=== PATIENT | female | born 1990 | race Asian ===

== ENCOUNTER 2022-03-03 15:57 | Emergency (ER) | payer MEDICAID ==
[~2022-03-03] VITALS: Ht 157.5 cm; Wt 90.7 kg
[2022-03-03 16:01] VITALS: BP 111/74
[2022-03-03] MEDS ORDERED: SODIUM CHLORIDE 0.9% 1,000 ML IVB ONE (17:00)
[2022-03-03] MEDS ORDERED: ONDANSETRON HCL 4 MG/2 ML VIAL IV ONE (17:00)
[2022-03-03] MEDS ORDERED: MORPHINE SULFATE INJECTION 2 MG/ML SYRG IV ONE (17:00)
== END 2022-03-03 18:10 | disposition left against medical advice (07) ==
LOC: ER 15:57
DX: K52.9 Noninfective gastroenteritis and colitis, unspecified (principal)

== ENCOUNTER → 2024-06-12 | Day surgery (SDC) | payer MEDICAID ==
[~2024-06-12] VITALS: Ht 157.5 cm; Wt 100.0 kg
[~2024-06-12] MED LIST: DexAMETHasone SOD PHOS 10MG/1ML VIAL INJ ONE; ETOMIDATE (2MG/ML) 20ML VIAL IV ONE; HYDROmorphone HCL 2 MG/ML VL/or syr IV PRN; IBUP-1456 PO; LACTATED RINGER'S 1,000 ML IV SCH; MIDAZOLAM HCL 2MG/2ML 2ml VIAL (1mg/ml) IV PRN; MIDAZOLAM HCL 2MG/2ML 2ml VIAL (1mg/ml) ONE; MORPHINE SULFATE 4 MG/ML SYR/VIAL IV PRN; ONDANSETRON HCL 4 MG/2 ML VIAL IV PRN; PHENYLEPHRINE HCL 10 MG/ML VL IV ONE; SUCCINYLCHOLINE CHLORIDE 20 MG/ML 10ML VIAL IV ONE; SUGAMMADEX 200mg/2ml Vial (100MG/ML) IV ONE; ZOFR4T PO; ceFAZolin 1GM VL ONE; ceFAZolin 1GM/50ML 100 ML IV ONE; ePHEDrine SULFATE 50 MG/ML AMP IV PRN; fentaNYL CITRATE 100 MCG/2 ML VL ONE
[2024-06-12 18:14] LABS: Basophils # (auto) 0.1 10 ^3/uL (0-0.2); Eosinophils # (auto) 0.5 10 ^3/uL (0-0.8); Eosinophils % (auto) 4.1 % (0.0-7.0); Hematocrit 42.1 % (36.0-46.0); Lymphocytes # (auto) 4.1 10 ^3/uL (0.4-5.4); Lymphocytes % (auto) 30.7 % (10.0-50.0); Mean Corpuscular Hemoglobin 30.3 pg (28.0-32.0); Mean Corpuscular Hgb Conc. 33.2 g/dL (32.0-36.0); Monocytes % (auto) 7.2 % (0.0-12.0); Neutrophils # (auto) 7.6 10 ^3/uL (1.6-8.6); Nucleated Red Blood Cells % 0.1 %; Platelet Count (auto) 355 10^3/uL (140-450); Red Blood Cells 4.62 10^6/uL (4.0-5.20); Red Cell Distribution Width 14.4 % (11.8-14.3); White Blood Cell 13.4 10^3/uL (4.4-10.8)
[2024-06-12] MEDS: LACT. RINGERS/OXYTOCIN 20UNITS 1,000 ML IV ONE (18:14)
[2024-06-12 18:25] LABS: INR 0.96 (0.9-1.15); Partial Thromboplastin Time 25.6 SEC (24.5-34.5); Prothrombin Time 10.2 sec (9.3-11.8)
[2024-06-12 18:31] VITALS: PULSE 88; RESP 20; O2SAT 96
[2024-06-12 21:15] VITALS: TEMP 97.8
[2024-06-12 21:20] VITALS: O2SAT 100
[2024-06-12 21:55] LABS: Basophils # (auto) 0.1 10 ^3/uL (0-0.2); Basophils % (auto) 0.4 % (0.0-2.0); Eosinophils # (auto) 0 10 ^3/uL (0-0.8); Eosinophils % (auto) 0.1 % (0.0-7.0); Hematocrit 36.2 % (36.0-46.0); Lymphocytes # (auto) 1.9 10 ^3/uL (0.4-5.4); Lymphocytes % (auto) 7.7 % (10.0-50.0); Mean Corpuscular Hemoglobin 29.9 pg (28.0-32.0); Mean Corpuscular Hgb Conc. 33.1 g/dL (32.0-36.0); Mean Corpuscular Volume 90.2 fL (80.0-100.0); Monocytes # (auto) 0.7 10 ^3/uL (0-1.3); Monocytes % (auto) 2.8 % (0.0-12.0); Neutrophils # (auto) 21.6 10 ^3/uL (1.6-8.6); Platelet Count (auto) 337 10^3/uL (140-450); Red Blood Cells 4.01 10^6/uL (4.0-5.20); Red Cell Distribution Width 14.2 % (11.8-14.3); White Blood Cell 24.3 10^3/uL (4.4-10.8)
[2024-06-12 22:10] VITALS: BP 103/46; PULSE 75; RESP 20; O2SAT 95
[2024-06-12] MEDS: ONDANSETRON HCL 4 MG/2 ML VIAL IV ONE (22:15)
== END | disposition home or self-care (01) ==
LOC: ER 17:23 → SUR 20:02
PROVIDERS: ATTEND Obstetrics & Gynecology
DX: O03.4 Incomplete spontaneous abortion without complication (principal); Z3A.01 Less than 8 weeks gestation of pregnancy
CPT/HCPCS: 36415; 59812; 76801; 84702; 85025; 85610; 85730; 86850; 86900; 86901; 88305; 96365; 96375; 99291; J0330; J0690; J1100; J2250; J2371; J2405; J2590; J3010

== ENCOUNTER 2024-08-24 08:03 | Emergency (ER) | payer MEDICAID ==
[~2024-08-24] VITALS: Ht 157.5 cm; Wt 95.0 kg
[~2024-08-24 08:03] MED LIST changes: -DexAMETHasone SOD PHOS 10MG/1ML VIAL INJ ONE; -ETOMIDATE (2MG/ML) 20ML VIAL IV ONE; -HYDROmorphone HCL 2 MG/ML VL/or syr IV PRN; -LACTATED RINGER'S 1,000 ML IV SCH; -MIDAZOLAM HCL 2MG/2ML 2ml VIAL (1mg/ml) IV PRN; -MIDAZOLAM HCL 2MG/2ML 2ml VIAL (1mg/ml) ONE; -MORPHINE SULFATE 4 MG/ML SYR/VIAL IV PRN; -ONDANSETRON HCL 4 MG/2 ML VIAL IV PRN; -PHENYLEPHRINE HCL 10 MG/ML VL IV ONE; -SUCCINYLCHOLINE CHLORIDE 20 MG/ML 10ML VIAL IV ONE; -SUGAMMADEX 200mg/2ml Vial (100MG/ML) IV ONE; -ceFAZolin 1GM VL ONE; -ceFAZolin 1GM/50ML 100 ML IV ONE; -ePHEDrine SULFATE 50 MG/ML AMP IV PRN; -fentaNYL CITRATE 100 MCG/2 ML VL ONE
[2024-08-24 08:40] VITALS: PULSE 73; RESP 28; TEMP 97.7; O2SAT 97
[2024-08-24 09:12] LABS: Basophils # (auto) 0.1 10 ^3/uL (0-0.2); Basophils % (auto) 1.2 % (0.0-2.0); Eosinophils # (auto) 0.4 10 ^3/uL (0-0.8); Eosinophils % (auto) 4.2 % (0.0-7.0); Hematocrit 40.3 % (36.0-46.0); Hemoglobin 13.3 g/dL (12.2-16.2); Lymphocytes # (auto) 2.5 10 ^3/uL (0.4-5.4); Lymphocytes % (auto) 24.3 % (10.0-50.0); Mean Corpuscular Hemoglobin 27.1 pg (28.0-32.0); Mean Corpuscular Volume 82.3 fL (80.0-100.0); Monocytes # (auto) 0.6 10 ^3/uL (0-1.3); Monocytes % (auto) 5.9 % (0.0-12.0); Neutrophils # (auto) 6.6 10 ^3/uL (1.6-8.6); Neutrophils % (auto) 64.4 % (37.0-80.0); Platelet Count (auto) 407 10^3/uL (140-450); Red Cell Distribution Width 16.5 % (11.8-14.3); White Blood Cell 10.3 10^3/uL (4.4-10.8)
[2024-08-24] MEDS: HYDROcodone-ACET 5/325MG TAB PO ONE (10:07)
[2024-08-24] MEDS ORDERED: HYDROcodone-ACET 5/325MG TAB ONE (10:10)
[2024-08-24 10:17] LABS: Calcium 9.1 mg/dL (8.7-10.4); Chloride 108 mmol/L (98-107); Glucose 121 mg/dL (74-106); Potassium 3.8 mmol/L (3.5-5.1); Sodium 137 mmol/L (136-145)
[2024-08-24 10:38] LABS: Anion Gap 6 (5-15); BUN/Creatinine Ratio 13.5 (10.0-20.0); Blood Urea Nitrogen 12 mg/dL (9-23); Carbon Dioxide 23 mmol/L (20-31)
[2024-08-24 14:00] VITALS: BP 137/80; PULSE 80; RESP 15; O2SAT 100
[2024-08-25] MEDS ORDERED: ZOFR4T PO (01:11)
[2024-08-26] MEDS ORDERED: fentaNYL CITRATE 100 MCG/2 ML VL ONE (11:32)
[2024-08-26] MEDS ORDERED: PROPOFOL 10 MG/ML 20 ML IV ONE (11:33)
[2024-08-26] MEDS ORDERED: ONDANSETRON HCL 4 MG/2 ML VIAL ONE (11:55)
[2024-08-26] MEDS ORDERED: DexAMETHasone SOD PHOS 10MG/1ML VIAL INJ ONE (11:55)
[2024-08-26] MEDS ORDERED: ROCURONIUM 10MG/ML 10ML VIAL IV ONE (11:58)
[2024-08-26] MEDS ORDERED: MEPERIDINE HCL (50 MG/ML) 1 ML VIAL ONE (11:59)
[2024-08-26] MEDS ORDERED: SUGAMMADEX 200mg/2ml Vial (100MG/ML) IV ONE (13:00)
== END 2024-08-24 15:09 | disposition home or self-care (01) ==
LOC: ER 08:03
DX: D25.9 Leiomyoma of uterus, unspecified (principal); R10.2 Pelvic and perineal pain; R93.89 Abnormal findings on diagnostic imaging of other specified body structures; R42 Dizziness and giddiness
CPT/HCPCS: 36415; 76801; 76817; 80048; 84702; 85025

== ENCOUNTER 2024-08-24 23:18 | Emergency (ER) | payer MEDICAID ==
[~2024-08-24] VITALS: Ht 157.5 cm; Wt 95.5 kg
[2024-08-25] MEDS: HYDROcodone-ACET 10/325MG TAB PO ONE (00:19)
[2024-08-25] MEDS: ONDANSETRON ODT 4 MG TAB PO ONE (00:20)
[2024-08-25 00:36] VITALS: BP 133/67; PULSE 64; RESP 17; TEMP 99.7; O2SAT 100
[2024-08-25] MEDS ORDERED: ZOFR4T PO (01:11)
[2024-08-26] MEDS ORDERED: HYDR1TAB97 PO (13:17)
[2024-08-26] MEDS ORDERED: IBUP-1456 PO (13:17)
== END 2024-08-25 01:29 | disposition home or self-care (01) ==
LOC: ER 23:18
DX: N93.8 Other specified abnormal uterine and vaginal bleeding (principal); E66.01 Morbid (severe) obesity due to excess calories; Z68.38 Body mass index [BMI] 38.0-38.9, adult; Z79.899 Other long term (current) drug therapy
CPT/HCPCS: 99283; Q0162

== ENCOUNTER 2024-08-26 06:15 | Observation (INO) | payer MEDICAID ==
[~2024-08-26] VITALS: Ht 157.5 cm; Wt 98.7 kg
--- NOTE | 2024-08-26 06:40 | ED.PDOC ---
History of Present Illness HPI Comments 34Y F presents to ED for chief complaint abnormal labs. Pt was seen at [facility] ER on 08/24/2024 twice for cc vaginal bleeding with abd pain. Pt states she is still experiencing light vaginal bleeding with abd pain at a level of 5-6/10. Pt had D&C performed at [facility] by Dr. Charles in 2023 but never went to f/u appt. Pt has been 3 times with 2 being miscarriages. No known allergies. Time Seen by MD: 06:24 Primary Care Provider: UNKNOWN Reviewed Notes: Medications, Allergies Allergies: Coded Allergies: NO KNOWN ALLERGIES (Unverified , 06/12/24) Home Meds Active Scripts Ondansetron Odt 4MG Tab (ZOFRAN PO) 4 Mg Tb, 4 MG PO Q6HP PRN, #20 TAB ODT TAB-DISSOLVE IN MOUTH, THEN SWALLOW Prov:AMELIA TORRES PAC 08/25/24 Ondansetron Odt 4MG Tab (ZOFRAN PO) 4 Mg Tb, 4 MG PO Q4HPRN PRN for 7 Days, #35 TAB ODT TAB-DISSOLVE IN MOUTH, THEN SWALLOW Prov:MARLENY CHARLES DO 06/12/24 Ibuprofen (Ibuprofen) 800 Mg Tab, 800 MG PO TID PRN for 3 Days, #9 TAB Prov:SONUYGMARLENY DO 06/12/24 Information Source: Patient Mode of Arrival: Ambulatory Severity: Mild Timing: Days Duration: Since onset Past Medical History PAST MEDICAL HISTORY: Denies Surgical History: Denies all surgeries BUTTON PUSHER History: No Pertinent BUTTON PUSHER History Family History Family History: Family hx of Cancer Social History Smoker: Non-Smoker Alcohol: Denies ETOH Use Drugs: Denies Drug Use Lives In: Home Constitutional: denies: chills, diaphoresis, fatigue, fever, malaise, sweats, weakness, others EENTM: denies: blurred vision, double vision, ear bleeding, ear discharge, ear drainage, ear pain, ear ringing, eye pain, eye redness, hearing loss, mouth pain, mouth swelling, nasal discharge, nose bleeding, nose congestion, nose pain, photophobia, tearing, throat pain, throat swelling, voice changes, others Respiratory: denies: cough, hemoptysis, orthopnea, SOB at rest, shortness of breath, SOB with excertion, stridor, wheezing, others Cardiovascular: denies: chest pain, dizzy spells, diaphoresis, Dyspnea on exertion, edema, irregular heart beat, left arm pain, lightheadedness, palpitations, PND, syncope, others Gastrointestinal: reports: abdominal pain; denies: abdomen distended, blood streaked bowels, constipated, diarrhea, dysphagia, difficulty swallowing, hematemesis, melena, nausea, poor appetite, poor fluid intake, rectal bleeding, rectal pain, vomiting, others Genitourinary: reports: abnormal vagina bleeding; denies: burning, dyspareunia, dysuria, flank pain, frequency, hematuria, incontinence, pain, , vagina discharge, urgency, others Neurological: denies: dizziness, fainting, headache, left sided numbness, left sided weakness, numbness, paresthesia, pre-existing deficit, right sided numbness, right sided weakness, seizure, speech problems, tingling, tremors, weakness, others Musculoskeletal: denies: back pain, gout, joint pain, joint swelling, muscle pain, muscle stiffness, neck pain, others Integumetry: denies: bruises, change in color, change in hair/nails, dryness, laceration, lesions, lumps, rash, wounds, others Allergic/Immunocompromised: denies: Difficulty Healing, Frequent Infections, Hives, Itching, others Hematologic/Lymphatic: denies: anemia, blood clots, easy bleeding, easy bruising, swollen glands, others Endocrine: denies: excessive hunger, excessive sweating, excessive thirst, excessive urination, flushing, intolerance to cold, intolerance to heat, unexplained weight gain, unexplained weight loss, others Psychiatric: denies: anxiety, bipolar disorder, depression, hopeless, panic disorder, schizophrenia, sleepless, suicidal, others All Other Systems: Reviewed and Negative Physical Exam General Appearance: Moderate Distress, Normal HEENT: Normal ENT Inspection, Pharynx Normal, TMs Normal Neck: Full Range of Motion, Non-Tender, Normal, Normal Inspection Respiratory: Chest Non-Tender, Lungs Clear, No Accessory Muscle Use, No Respi ratory Distress, Normal Breath Sounds Cardiovascular: No Edema, No JVD, No Murmur, No Gallop, Normal Peripheral Pulses, Regular Rate/Rhythm Breast Exam: Deferred Gastrointestinal: No Organomegaly, Non Tender, No Pulsatile Mass, Normal Bowel Sounds, Soft Genitalia: Deferred Pelvic: Deferred Rectal: Deferred Extremities: No calf tenderness, Normal capillary refill, Normal inspection, Normal range of motion, Non-tender, No pedal edema Musculoskeletal : Apperance: Normal Neurologic: Alert, game artist II-XII nml as Tested, No Motor Deficits, Normal Affect, Normal Mood, No Sensory Deficits Cerebellar Function: Normal Reflexes: Normal Skin: Dry, Normal Color, Warm Peripheral Pulses: 3+ Radial (R), 3+ Radial (L) Lymphatic: No Adenopathy Was a procedure done? Was a procedure done?: No Differential Dx Considerations may include: Anemia Electrolyte imbalance X-Ray, Labs, Meds, VS Vital Signs Date Time Temp Pulse Resp B/P (MAP) Pulse Ox O2 Delivery O2 Flow Rate FiO2 08/26/24 09:09 70 18 98 Room Air* 0 21 08/26/24 09:06 98.0 78 18 110/59 (76) 95 98.0 08/26/24 06:25 98.5 106 18 107/68 (81) 98 Lab Test 08/26/24 06:35 08/26/24 06:30 Range/Units White Blood Count 9.2 4.4-10.8 10^3/uL Red Blood Count 4.60 4.0-5.20 10^6/uL Hemoglobin 12.5 12.2-16.2 g/dL Hematocrit 37.9 36.0-46.0 % Mean Corpuscular Volume 82.4 80.0-100.0 fL Mean Corpuscular Hemoglobin 27.1 L 28.0-32.0 pg Mean Corpuscular Hemoglobin Concent 32.8 32.0-36.0 g/dL Red Cell Distribution Width 16.8 H 11.8-14.3 % Platelet Count 397 140-450 10^3/uL Mean Platelet Volume 7.4 6.9-10.8 fL Neutrophils (%) (Auto) 59.2 37.0-80.0 % Lymphocytes (%) (Auto) 28.7 10.0-50.0 % Monocytes (%) (Auto) 7.4 0.0-12.0 % Eosinophils (%) (Auto) 3.7 0.0-7.0 % Basophils (%) (Auto) 1.0 0.0-2.0 % Neutrophils # (Auto) 5.4 1.6-8.6 10 ^3/uL Lymphocytes # (Auto) 2.6 0.4-5.4 10 ^3/uL Monocytes # (Auto) 0.7 0-1.3 10 ^3/uL Eosinophils # (Auto) 0.3 0-0.8 10 ^3/uL Basophils # (Auto) 0.1 0-0.2 10 ^3/uL Nucleated Red Blood Cells 0.1 % Prothrombin Time 10.8 9.3-11.8 sec Prothrombin Time INR 1.02 0.9-1.15 Activated Partial Thromboplast Time 26.8 24.5-34.5 SEC Beta HCG, Quantitative 803.3 H 1.5-4.2 mIU/mL Urine Color Light-orange Yellow Urine Clarity Cloudy H Clear Urine pH 6.5 5.0-9.0 Urine Specific [place] 1.034 1.001-1.035 Urine Protein 1+ H Negative Urine Ketones Trace Negative Urine Blood 3+ H Negative /uL Urine Nitrite Negative Negative Urine Bilirubin Negative Negative Urine Urobilinogen 3 H Negative mg/dL Urine Leukocyte Esterase 1+ Negative /uL Urine RBC 1373 0 - 4 /hpf Urine WBC 11 0 - 5 /hpf Urine Squamous Epithelial Cells Mod <5 /hpf Urine Bacteria Few H None Seen /hpf Urine Mucus Few None Seen Urine Glucose Normal Normal mg/dL [place] [id number] Ph: [phone] DIAGNOSTIC IMAGING Diagnostic Imaging Report : [id number] Signed PATIENT: KIMBERLY AMBROCIO ACCT: [id number] UNIT: [id number] : 1990 LOC: ER ROOM / BED: / AGE / SEX: 34 / F ADM STATUS: REG ER SERVICE [id number] ORDERING PHYSICIAN: RUTHIE CRANE MD PROCEDURE(s): OB4US - OB ULTRASOUND COMP LESS 14WKS REASON: bleeding ORDER NUMBER(s): [id number], ACCESSION NUMBER(s): [id number] OB ULTRASOUND <14 WEEKS: HISTORY: bleeding TECHNIQUE: Multiple real-time grayscale sonographic images of the pelvis with duplex Doppler color flow, spectral and M-mode analysis. Comparison: Pelvic ultrasound dated 08/24/24. FINDINGS: The uterus measures 9.3 x 6.9 x 5.0 cm. There is a hypoechoic mass measuring 0.9 x 0.9 x 1.2 cm. No evidence of intrauterine gestation identified. The endometrium thickness measures 0.7 cm. Right ovary measures 4.0 x 2.5 x 2.5 cm with normal Doppler color flow Left ovary measures 2.2 x 1.7 x 1.6 cm with normal Doppler color flow There is heterogeneous mass adjacent to the right ovary measuring 3.1 x 2.4 x 2.6 cm. No evidence of peripheral vascularity. There is moderate right adnexal and cul-de-sac free fluid. IMPRESSION: 1. No intrauterine identified. 2. Right adnexal mass measuring 3.1 cm with moderate pelvic free fluid. In the appropriate clinical setting, a ruptured ectopic can not be excluded. ATED BY: ZORAIDA SIU MD DICTATED DATE/TIME: 08/26/24914 SIGNED BY: ZORAIDA SIU MD SIGNED DATE/TIME: 08/26/24914 CC: Patient alert pain Complaining of vaginal bleeding. Was seen here for similar condition few days ago. Vitals stable. Spoke with OBGYN last time she was here. Reviewed her previous visit. Contact OBGYN. She did have D and C recently. Even after the D and C she continues to have bleeding. Her beta hCG last time she was here was elevated. OBGYN wanted to monitor her beta hCG along with possible ultrasound. Explained to the patient. Ultrasound reviewed does show fluid in the cul-de-sac adnexal debris possible ectopic . Time of 1ST Reevaluation: 06:54 Reevaluation 1ST: Unchanged Patient Education/Counseling: Diagnosis, Treatment Family Education/Counseling: No Family Present Departure 1 Departure Time of Disposition: 06:47 Impression: Primary Impression: Vaginal bleeding Additional Impression: Ectopic Qualified Codes: O00.90 - Unspecified ectopic without intrauterine Disposition: ADMITTED INPATIENT Admit to: Med Surg Condition: Guarded Critical Care Note Critical Care Time?: Yes (45 min-critical care time only) Stability Stability form required: No Heart Score Heart Score: Heart Score Response (Comments) Value History N/A 0 EKG N/A 0 Age N/A 0 Risk Factors N/A 0 Troponin N/A 0 Total 0 I personally scribed for RUTHIE CRANE MD ([email or web address]) on 08/26/24 at 06:40. Electronically submitted by Brianna Ahuja ([email or web address]). I personally scribed for RUTHIE CRANE MD ([email or web address]) on 08/26/24 at 09:38. Electronically submitted by Brianna Ahuja ([email or web address]). RUTHIE CRANE MD Aug 26, 2024 06:40
[2024-08-26 07:09] LABS: Basophils # (auto) 0.1 10 ^3/uL (0-0.2); Eosinophils # (auto) 0.3 10 ^3/uL (0-0.8); Eosinophils % (auto) 3.7 % (0.0-7.0); Hematocrit 37.9 % (36.0-46.0); Hemoglobin 12.5 g/dL (12.2-16.2); Lymphocytes # (auto) 2.6 10 ^3/uL (0.4-5.4); Lymphocytes % (auto) 28.7 % (10.0-50.0); Mean Corpuscular Hemoglobin 27.1 pg (28.0-32.0); Mean Corpuscular Hgb Conc. 32.8 g/dL (32.0-36.0); Mean Corpuscular Volume 82.4 fL (80.0-100.0); Monocytes # (auto) 0.7 10 ^3/uL (0-1.3); Monocytes % (auto) 7.4 % (0.0-12.0); Neutrophils # (auto) 5.4 10 ^3/uL (1.6-8.6); Neutrophils % (auto) 59.2 % (37.0-80.0); Nucleated Red Blood Cells % 0.1 %; Platelet Count (auto) 397 10^3/uL (140-450); Red Cell Distribution Width 16.8 % (11.8-14.3); White Blood Cell 9.2 10^3/uL (4.4-10.8)
[2024-08-26 07:22] LABS: INR 1.02 (0.9-1.15); Partial Thromboplastin Time 26.8 SEC (24.5-34.5); Prothrombin Time 10.8 sec (9.3-11.8)
[2024-08-26 09:09] VITALS: PULSE 70; RESP 18; O2SAT 98
--- NOTE | 2024-08-26 09:17 | DVH ---
OB ULTRASOUND <14 WEEKS: HISTORY: bleeding TECHNIQUE: Multiple real-time grayscale sonographic images of the pelvis with duplex Doppler color f low, spectral and M-mode analysis. Comparison: Pelvic ultrasound dated 08/24/24. FINDINGS: The uterus measures 9.3 x 6.9 x 5.0 cm. There is a hypoechoic mass measuring 0.9 x 0.9 x 1.2 cm. No e vidence of intrauterine gestation identified. The endometrium thickness measures 0.7 cm. Right ovary measures 4.0 x 2.5 x 2.5 cm with normal Doppler color flow Left ovary measures 2.2 x 1.7 x 1.6 cm with normal Doppler color flow There is heterogeneous mass adjacent to the right ovary measuring 3.1 x 2.4 x 2.6 cm. No evidence of peripheral vascularity. There is moderate right adnexal and cul-de-sac free fluid. IMPRESSION: 1. No intrauterine identified. 2. Right adnexal mass measuring 3.1 cm with moderate pelvic free fluid. In the appropriate clinical s etting, a ruptured ectopic can not be excluded.
[2024-08-26 09:28] LABS: Urine Bacteria FEW /hpf (None Seen); Urine Blood 3+ /uL (Negative); Urine Color Light-Orange (Yellow); Urine Mucus FEW (None Seen); Urine Protein, UAD 1+ (Negative); Urine Specific Gravity 1.034 (1.001-1.035); Urine Urobilinogen 3 mg/dL (Negative); Urine WBC 11 /hpf (0 - 5); Urine pH 6.5 (5.0-9.0)
[2024-08-26 09:32] LABS: Urine Clarity Cloudy (Clear)
[2024-08-26] MEDS ORDERED: LACTATED RINGER'S 1,000 ML IV SCH (11:15)
[2024-08-26] MEDS ORDERED: ceFAZolin 2 GM/D5W50ml 50 ML IV ONE (11:15)
--- NOTE | 2024-08-26 11:15 | DVHHP2 ---
[facility] [employer] CC & HPI Date Date of Admission: Aug 26, 2024 Chief Complaints: Reason for admission: Ectopic History of Present Complaints History of Present Complaints 34y SAB2 LMP unsure, last intercourse sometime mid July, approx 7 wk ago. Patient presented with acute vaginal bleeding and pelvic pain. Recent SAB/ D&C June 2024 (pathology reviewed chorionic villi present +) HCG 2700 down now to 900, but patient has RLQ pain. US shows 3.1 cm Rt adnexal mass w/ moderate free fluid w/ debris suspicious for ruptured ectopic Denies any CP, SOB or dizziness. Past Medical History Cardiac: No pertinent Hx Pulmonary: No pertinent Hx Central Nervous System: No pertinent Hx GI: No pertinent Hx Hemotology/Oncology: No pertinent Hx Hepatobiliary: No pertinent Hx Psychiatric: No pertinent Hx Musculoskeletal: No pertinent Hx Rheumotologic: No pertinent Hx Infectious Disease: No peritnent Hx ENT: No pertinent Hx Renal/: No pertinent Hx Endocrine: No pertinent Hx Dermatology: No pertinent Hx Past Surgical History: No pertinent Hx Allergies: Coded Allergies: NO KNOWN ALLERGIES (Unverified , 06/12/24) Home Meds Active Scripts Ondansetron Odt 4MG Tab (ZOFRAN PO) 4 Mg Tb, 4 MG PO Q6HP PRN, #20 TAB ODT TAB-DISSOLVE IN MOUTH, THEN SWALLOW Prov:AMELIA TORRES PAC 08/25/24 Ondansetron Odt 4MG Tab (ZOFRAN PO) 4 Mg Tb, 4 MG PO Q4HPRN PRN for 7 Days, #35 TAB ODT TAB-DISSOLVE IN MOUTH, THEN SWALLOW Prov:MARLENY STEWART DO 06/12/24 Ibuprofen (Ibuprofen) 800 Mg Tab, 800 MG PO TID PRN for 3 Days, #9 TAB Prov:MARLENY STEWART DO 06/12/24 Review of Systems Constitutional: No symptom reported Ears, Nose, & Throat: No symptom reported Eyes: No symptom reported Pulmonary/Respiratory: No symptom reported Cardiovascular: No symptom reported Gastrointestinal: Abdominal Pain Genitourinary: No symptom reported Musculoskeletal: No symptom reported Skin: No symptom reported Psychiatric: No symptom reported Endocrine: No symptom reported Hemotologic/Lymphatic: No symptom reported Physical Exam Physical Exam Vitals: Vital Signs Date Time Temp Pulse Resp B/P (MAP) Pulse Ox O2 Delivery O2 Flow Rate FiO2 08/26/24 09:09 70 18 98 Room Air* 0 21 08/26/24 09:06 98.0 110/59 (76) 98.0 HEENT: NCAT Heart: Rhythm Normal Lungs: Clear Abdomen: Other (Tender in RLQ, soft) Extremities: Normal Reflexes: Normal Scarrer/Pelvic Exam: Not done Assessment and Plan Plan Assessment and Plan: Ectopic plan: Consented for Operative laparoscopy, removal of ectopic , possible laparotomy, possible Dilation and curettage (D&C), possible unilateral (right) salpingectomy, salpingoophorectomy R/B/A/ of surgery discussed and informed consent obtained risks of scar, pain, bleeding, infection, blood transfusion, injury to bowel, bladder, adjacent organs all discussed w/ patient. Informed consent obtained. Date of Service: Aug 26, 2024 Billing Provider: KIKA CROFT DO Common Visit Codes: 23246-ADSQOOD INP/OBS CARE (HIGH) KIKA CROFT DO Aug 26, 2024 11:15
[2024-08-26] MEDS ORDERED: SUCCINYLCHOLINE CHLORIDE 20 MG/ML 10ML VIAL IV ONE (11:30)
[2024-08-26] MEDS ORDERED: ceFAZolin 2 GM/D5W100ml 100 ML IV ONE (11:45)
[2024-08-26] MEDS: LIDOCAINE W/ EPINEPHRINE 1% 20ML VIAL ONE (13:05)
[2024-08-26 13:12] VITALS: O2SAT 100
[2024-08-26] MEDS ORDERED: HYDR1TAB97 PO (13:17)
[2024-08-26] MEDS ORDERED: IBUP-1456 PO (13:17)
--- NOTE | 2024-08-26 13:20 | DVHDS2 ---
Physician Discharge Progress N Final Diagnosis: Right ectopic s/p laparoscopic rt salpingectomy Operations or Procedures: Operations or Procedures Laparoscopy w/ right salpingectomy (ectopic removal) Evacuation of hemoperitoneum Commentary: Commentary Rh+ Condition on Discharge: Stable Disposition: Home Discharge Instructions: Diet: Regular Activity: Light activity Activity comment: Pelvic rest x 2 weeks Follow Up/Referral: [address] Croft Labs: HCG quantitative 1 day before clinic appt. Medications: Ibuprofen 800mg, [place] 5mg Follow Up Care: Discharge Statement: "Patient was advised to return to the ER or call 911 if any headaches, dizziness, shortness of breath, chest pain, abdominal pain, bleeding, fevers, or worsening of medical condition. Patient was counseled about treatment plan, medications, possible side effects, patientverbalized understanding. All questions were answered to the best of my ability. This discharge took greater then 30 minutes in planning, reviewing documentation, counseling the patient, and discussing with other team members." KIKA CROFT DO Aug 26, 2024 13:20
[2024-08-26 13:27] VITALS: O2SAT 100
[2024-08-26] MEDS ORDERED: ONDANSETRON HCL 4 MG/2 ML VIAL IV ONE (13:30)
[2024-08-26] MEDS ORDERED: METOCLOPRAMIDE HCL 5MG/ml INJ 2ml VIAL IV ONE (13:30)
[2024-08-26] MEDS ORDERED: MEPERIDINE HCL (25 MG/ML) 1ML VIAL IV PRN (13:30)
--- NOTE | 2024-08-26 13:45 | DVHOP ---
DATE OF SURGERY: 08/26/2024 PREOPERATIVE DIAGNOSIS: Ruptured ectopic . FINAL DIAGNOSES: * Ruptured ectopic (right tubal ). * Hemoperitoneum. PROCEDURES PERFORMED: * Operative laparoscopic right salpingectomy. * Evacuation of hemoperitoneum. SURGEON: Nitish Alcantar DO TOOL PROCUREMENT COORDINATOR: Melony Gongora. TYPE OF ANESTHESIA: General endotracheal. ANESTHESIOLOGIST: Jose Quezada DO DESCRIPTION OF FINDINGS: A 3.5 cm ampullary right fallopian tube . There was 400 mL of clots and hemoperitoneum present. There was no obvious transluminal rupture. The bilateral ovaries were normal. The left fallopian tube and uterus were normal. There was a normal-appearing abdomen. TECHNICAL PROCEDURE: After informed consent was obtained, the patient was taken to the operating room where she underwent smooth induction with general anesthesia. The patient was placed in dorsal lithotomy position in Jah stirrups. The vagina, perineum, and abdomen were thoroughly prepped and the patient sterilely draped in usual fashion. A pelvic exam was performed under anesthesia with the above noted findings. A weighted speculum was placed into the patient's vagina and the anterior lip of the cervix was grasped with ring forceps. Uterine cavity sounded to 7 cm. A HUMI uterine manipulator was placed transcervically and the balloon inflated. A transurethral Bejarano was then placed. All instrumentation was removed from the patient's abdomen. Attention was then placed to the abdomen where a 5 mm incision was made at the base of the umbilicus. The Veress needle was introduced through this incision and entry into the peritoneal cavity was confirmed with the hanging water drop test. Carbon dioxide gas was infused and a pneumoperitoneum obtained. A 5 mm Optiview trocar was placed through the umbilical incision. Intraperitoneal placement was confirmed directly with the laparoscope. The entry was atraumatic as all layers of the abdomen were visualized upon entry. Next, a 10 mm port was inserted to the right of midline under direct visualization and another 5 mm port inserted on the patient's left under direct visualization. Next, the hemoperitoneum was evacuated using suction. Approximately 400 mL of blood clots and blood were removed. There was no active bleeding noted; however, there was a large approximately 3.5 cm mid ampullary tubal noted in the right fallopian tube. It was separate from the right ovary. Using the LigaSure device, the was removed as dissection across the mesosalpinx was performed with good hemostasis noted. The infundibulopelvic ligament was intact. The specimen was placed into a 10 mm EndoCatch bag and the specimen retrieved through the 12 mm port. Next, a Zane-Adriana system was used to close the 12 mm port with #1 Vicryl in interrupted fashion. Good tissue approximation was obtained. The abdomen was thoroughly irrigated and thoroughly suctioned. Vascular pedicles were inspected and hemostasis was confirmed. At this point, the carbon dioxide gas was released and the trocars were removed under direct visualization. They were removed under direct visualization. Next, the skin incisions were closed with 3-0 Monocryl in subcuticular fashion. The three incisions were injected with 0.25% Marcaine with epinephrine. Approximately 18 mL total were used. The skin incisions were sealed with Dermabond. The transcervical manipulator and the Bejarano catheter were removed. The patient was taken out of lithotomy position, awakened, and taken to recovery room in stable condition. INTRAOPERATIVE COMPLICATIONS: None. ESTIMATED BLOOD LOSS: Less than 15 mL plus 400 mL of hemoperitoneum present. SPECIMENS: Right fallopian tube and ectopic . POSTOPERATIVE CONDITION: Stable. OTHER FINDINGS: The patient's blood type Rh positive. DO PAOLO Todd TID: [id number] RECEIPT: [id number]
[2024-08-26] MEDS ORDERED: ACETAMINOPHEN IV 1000 MG/100ML (10MG/ML) IV ONE (14:30)
[2024-08-26] MEDS: HYDROmorphone HCL 2 MG/ML VL/or syr ONE (14:35)
[2024-08-26] MEDS: ACETAMINOPHEN IV 1000 MG/100ML (10MG/ML) IV PRN (14:35)
[2024-08-26] MEDS: HYDROmorphone HCL 2 MG/ML VL/or syr IV PRN (14:47)
[2024-08-26 14:57] VITALS: BP 120/71; PULSE 93; RESP 16; O2SAT 94
== END 2024-08-26 13:54 | disposition home or self-care (01) ==
LOC: ER 06:15 → OVERFLOW 11:18
PROVIDERS: ADMIT Obstetrics & Gynecology; ATTEND Obstetrics & Gynecology
DX: O00.101 Right tubal pregnancy without intrauterine pregnancy (principal); K66.1 Hemoperitoneum; Z86.2 Personal history of diseases of the blood and blood-forming organs and certain disorders involving the immune mechanism; Z79.899 Other long term (current) drug therapy
CPT/HCPCS: 36415; 59151; 76801; 76817; 81001; 84702; 85025; 85610; 85730; 86850; 86900; 86901; 88305; 99291; G0378; J0330; J0690; J1171; J0131